=== PATIENT | male | born 1945 | race Caucasian/White ===

== ENCOUNTER 2016-04-10 10:03 | Emergency (ER) | payer OTHER, BC ==
[2016-04-10 10:12] VITALS: BP 151/88; PULSE 60; TEMP 98; BMI 32.3
--- NOTE | 2016-04-10 12:08 | PDOC ---
History of Present Illness - General Chief Complaint: Pain Stated Complaint: RT TOENAIL DISCOLORATION (PCP SENT) Time Seen by Provider: 04/10/16 10:47 History Source: Patient Exam Limitations: No Limitations - History of Present Illness Initial Comments: 04/10/16 12:08 Came to emergency department per instruction of Dr. Linda Blair for evaluation. noted discoloration of his right great toenail 2 days ago without noted or remembered trauma, strenuous activity or exercise although patient had volunteered at the [employer] over the weekend with prolonged periods of standing and walking. Denies any tight fitting shoes, denies any known injury to his great toe. States is not painful however has peripheral neuropathy and is uncertain as if he would feel pain if there was an injury. Denies any other bruising or deformity to any other aspect of his foot. 04/10/16 12:14 04/10/16 12:22 04/10/16 12:28 Occurred: reports: yesterday Severity: reports: mild Pain Location: reports: none (the patient reports peripheral neuropathy) Method of Injury: Yes: unknown Modifying Factors: improves with: None Associated Symptoms (Fall): denies symptoms Past History - Travel Traveled outside of the country in the last 30 days: No Close contact w/someone who was outside of country & ill: No - Past Medical History Allergies/Adverse Reactions: Allergies Allergy/AdvReac Type Severity Reaction Status Date / Time No Known Allergies Allergy Verified 04/10/16 10:08 Home Medications: Ambulatory Orders Aspirin [Lavelle Chewable] 81 mg PO DAILY 06/29/15 Fenofibrate [Lofibra] 160 mg PO DAILY 06/29/15 Furosemide 20 mg PO DAILY 06/29/15 Lisinopril 10 mg PO DAILY 06/29/15 Nebivolol HCl [Bystolic] 5 mg PO DAILY 06/29/15 Omeprazole [Prilosec] 40 mg PO DAILY 06/29/15 Anemia: No Asthma: No Cancer: No Cardiac Disorders: No CVA: No COPD: No CHF: No Dementia: No Diabetes: No GI Disorders: Yes (GERD H/O COLONIC POLYPS) Disorders: No HTN: Yes Hypercholesterolemia: Yes Liver Disease: No Seizures: No Thyroid Disease: No - Surgical History Abdominal Surgery: No Appendectomy: No Cardiac Surgery: No Cholecystectomy: No Lung Surgery: No Neurologic Surgery: No Orthopedic Surgery: Yes (LEFT SHOULDER AND LEFT WRIST ARTHROSCOPIC SURGERY) - Psycho/Social/Smoking Cessation Hx Anxiety: No Suicidal Ideation: No Smoking History: Former smoker Have you smoked in the past 12 months: No Number of Cigarettes Smoked Daily: 0 If you are a former smoker, when did you quit?: 1973 Information on smoking cessation initiated: No Hx Alcohol Use: No Drug/Substance Use Hx: No Substance Use Type: Alcohol Hx Substance Use Treatment: No Review of Systems - Review of Systems Able to Perform ROS?: Yes Is the patient limited Yi proficient: Yes Constitutional: Yes: Symptoms Reported, See HPI, Malaise. No: Chills, Fever, Loss of Appetite HEENTM: No: Symptoms Reported Respiratory: Yes: Symptoms reported Musculoskeletal: Yes: Symptoms Reported, See HPI, Other (right great toe with discoloration to nail. No tenderness, but has neuropathy) Integumentary: Yes: Symptoms Reported Neurological: Yes: Symptoms reported All Other Systems: Reviewed and Negative *Physical Exam - Vital Signs Last Vital Signs Temp Pulse Resp BP Pulse Ox 98.0 F 60 18 151/88 100 04/10/16 10:09 04/10/16 10:09 04/10/16 10:09 04/10/16 10:09 04/10/16 10:09 - Physical Exam General Appearance: Yes: Nourished, Appropriately Dressed HEENT: positive: NORMA, Normal ENT Inspection, TMs Normal, Pharynx Normal Respiratory/Chest: positive: Lungs Clear, Normal Breath Sounds Gastrointestinal/Abdominal: positive: Soft Extremity: positive: Normal Capillary Refill, Normal Inspection, Other (75% subungual hematoma to the right great toe, nonfluctuant, nontender however patient reports peripheral neuropathy. 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 Cricket Gray, his PMD for thorough evaluation including vascular surgery consult. Once that information was revealed after evaluation, and discussed case with Dr. Gray , patient stated he did not wish to stay in the emergency department for a lengthy ER evaluation and requested to be discharged and would follow up tomorrow with Dr. Narvaez's office. He spoke with their office and that agreement was made. Patient will be discharged with this plan *DC/Admit/Observation/Transfer Diagnosis at time of Disposition: Hematoma, subungual, great toe, right Qualifiers: Encounter type: initial encounter Qualified Code(s): S90.211A - Contusion of right great toe with damage to nail, initial encounter - Discharge Dispostion Disposition: HOME Condition at time of disposition: Stable Admit: No - Patient Instructions Printed Discharge Instructions: DI for Subungual Hematoma Additional Instructions: be seen by Dr. Gray tomorrow in his office for potential consultation and further treatment as needed Keep foot elevated, avoid excessive exercise or heavy lifting until further evaluation is completed
== END 2016-04-10 12:18 | disposition home or self-care (01) ==
LOC: JERFT 10:03
DX: S90.211A Contusion of right great toe with damage to nail, initial encounter (principal); G62.89 Other specified polyneuropathies; I10 Essential (primary) hypertension; E78.00 Pure hypercholesterolemia, unspecified; K21.9 Gastro-esophageal reflux disease without esophagitis; Z86.010 Personal history of colon polyps; X50.1XXA Overexertion from prolonged static or awkward postures, initial encounter; Y93.89 Activity, other specified; Y92.59 Other trade areas as the place of occurrence of the external cause; Y99.2 Volunteer activity; Z87.891 Personal history of nicotine dependence
CPT/HCPCS: 99281-25

== ENCOUNTER 2020-12-19 07:30 | Day surgery (SDC) | payer OTHER, BC ==
[2020-12-14 16:08] VITALS: BMI 31.8
[2020-12-19] MEDS ORDERED: LIDOCAINE HCL/PF 2% SDV 5ML VIAL ONE (07:59)
[2020-12-19] MEDS ORDERED: PROPOFOL 20 ML ONE ×4 (07:59)
[2020-12-19] MEDS ORDERED: ETOMIDATE 20 MG/10 ML AMPUL IVPUSH ONE (08:21)
[2020-12-19 08:50] VITALS: TEMP 97.9
[2020-12-19 09:18] VITALS: BP 116/57; PULSE 80
== END 2020-12-19 09:40 | disposition home or self-care (01) ==
LOC: FASU-ENDO 07:30
PROVIDERS: ATTEND Internal Medicine Gastroenterology
PROC: 0DBK8ZX Excision of Ascending Colon, Via Natural or Artificial Opening Endoscopic, Diagnostic (ICD-10-PCS; 2020-12-19)
PROC: 0D5K8ZZ Destruction of Ascending Colon, Via Natural or Artificial Opening Endoscopic (ICD-10-PCS; principal; 2020-12-19 08:20)
DX: Z86.010 Personal history of colon polyps (principal); K55.20 Angiodysplasia of colon without hemorrhage; K57.30 Diverticulosis of large intestine without perforation or abscess without bleeding; K63.5 Polyp of colon
CPT/HCPCS: 88305-TC

== ENCOUNTER 2023-03-05 07:54 | Day surgery (SDC) | payer OTHER, BC ==
[2023-03-01 16:46] VITALS: BMI 30.8
[2023-03-05 08:20] VITALS: RESP 18
[2023-03-05] MEDS ORDERED: LIDOCAINE HCL 1%, 10 MG/ML (20ML VIAL) ONE (08:36)
[2023-03-05 11:07] VITALS: BP 125/67; PULSE 47; TEMP 96.6
== END 2023-03-05 10:45 | disposition home or self-care (01) ==
LOC: FASU 07:54
PROVIDERS: ATTEND Orthopaedic Surgery
PROC: 3E0T3TZ Introduction of Destructive Agent into Peripheral Nerves and Plexi, Percutaneous Approach (ICD-10-PCS; principal; 2023-03-05 09:52)
DX: M17.11 Unilateral primary osteoarthritis, right knee (principal); M25.561 Pain in right knee